=== PATIENT | male | born 1980 | race Caucasian/White ===

== ENCOUNTER 2022-02-07 15:18 | Emergency (ER) | payer MEDICAID, SELFPAY ==
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
--- NOTE | ~2022-02-07 | XR_ITS ---
EXAMINATION: XR FOOT, RIGHT CLINICAL INFORMATION: Metatarsal tenderness COMPARISON: None TECHNIQUE: AP, lateral, and oblique views of the right foot. FINDINGS: The bones and soft tissues are normal. No fracture. Alignment is anatomic. Joint spaces are maintained. XR/XR foot RT 2V IMPRESSION: Normal right foot.
[2022-02-07 15:33] VITALS: BP 126/88; BP 190/120; PULSE 100; PULSE 71; RESP 19; TEMP 37.1; O2SAT 100; BMI 26.6
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
[2022-02-07 17:50] VITALS: BP 122/86; PULSE 78; RESP 19; O2SAT 100
== END 2022-02-07 17:50 | disposition home or self-care (01) ==
PROVIDERS: Emergency Provider Emergency Medicine
DX: S13.4XXA Sprain of ligaments of cervical spine, initial encounter (principal); S90.31XA Contusion of right foot, initial encounter; G44.309 Post-traumatic headache, unspecified, not intractable; V43.52XA Car driver injured in collision with other type car in traffic accident, initial encounter; Y93.9 Activity, unspecified; Y92.410 Unspecified street and highway as the place of occurrence of the external cause; Y99.9 Unspecified external cause status
CPT/HCPCS: 70450; 72125; 73620; 99284

== ENCOUNTER 2023-02-02 17:46 | Emergency (ER) | payer OTHER, SELFPAY ==
--- NOTE | ~2023-02-02 | XR_ITS ---
EXAMINATION: XR KNEE, RIGHT CLINICAL INFORMATION: Pain. Previous injury COMPARISON: None available. TECHNIQUE: Four views of the right knee. FINDINGS: There is mild reduction the patellofemoral compartment. The medial and lateral compartment joint space is preserved. No joint effusion seen. There are no loose bodies. The soft tissues are normal. XR/XR knee RT 2V IMPRESSION: Mild degenerative changes patellofemoral compartment. No visible acute fracture or dislocation seen.
[2023-02-02 17:59] VITALS: BP 136/100; PULSE 102; RESP 20; TEMP 36.7; O2SAT 96; BMI 24.5
--- NOTE | 2023-02-02 18:01 | ED.GENADULT ---
HPI - General Adult General Chief complaint: Extremity Problem <EBONI Berg - Last Filed: 02/02/23 18:02> Stated complaint: right knee pain <EBONI Berg - Last Filed: 02/02/23 18:02> Time Seen by Provider: 02/02/23 19:58 <EBONI Berg - Last Filed: 02/02/23 18:02> Source: patient and RN notes reviewed <Damien Camarena - Last Filed: 02/02/23 20:19> Mode of arrival: ambulatory <Damien Camarena - Last Filed: 02/02/23 20:19> Limitations: no limitations <Damien Camarena - Last Filed: 02/02/23 20:19> History of Present Illness HPI narrative: 42-year-old male presenting for evaluation of right knee pain. Patient to that 3 years ago he tore his ACL, MCL, and meniscus requiring surgical repair. 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 He states that when the rounded the corner he sometimes right knee ?twisted. My foot planted but then my knee went the other way. ? He has been ambulating with a cane in the meantime but has pain mostly to the upper area of the knee and he indicates the medial side as well. His pain is 6/10 at worse with any kind of movement <Damien Camarena - Last Filed: 02/02/23 20:19> Related Data Home medications: Previous Rx's Medication Instructions Recorded naproxen 500 mg tablet (Naprosyn) 500 mg PO BID #20 tabs 02/07/22 ibuprofen 600 mg tablet 600 mg PO TID PRN pain #20 tabs 02/02/23 <EBONI Berg - Last Filed: 02/02/23 18:02> Allergies/adverse reactions: Allergies Allergy/AdvReac Type Severity Reaction Status Date / Time No Known Allergies Allergy Verified 02/07/22 16:09 <EBONI Berg - Last Filed: 02/02/23 18:02> Review of Systems Cardiovascular: Cardiovascular: Denies chest pain and Denies dyspnea <Damien Camarena - Last Filed: 02/02/23 20:19> Respiratory: Respiratory: Denies cough and Denies dyspnea <Damien Camarena - Last Filed: 02/02/23 20:19> Gastrointestinal: Gastrointestinal: Denies abdominal pain, Denies constipation and Denies vomiting <Damien Camarena - Last Filed: 02/02/23 20:19> Musculoskeletal: Comments: Right medial knee pain <Damien Camarena - Last Filed: 02/02/23 20:19> Neurologic: Denies focal weakness <Damien Camarena - Last Filed: 02/02/23 20:19> [facility] Social History Social History: Social History Advance Directives: No Advance Directives Information Provided: Yes <EBONI Berg - Last Filed: 02/02/23 18:02> Physical Exam ED Vital Signs: Vital Signs - 24 hr 02/02/23 17:59 Temperature 98.0 F Pulse Rate 102 H Respiratory Rate 20 Blood Pressure 136/100 H Pulse Oximetry 96 Oxygen Delivery Method Room Air BMI result Body Mass Index 24.5 <EBONI Berg - Last Filed: 02/02/23 18:02> Vital Signs - 24 hr 02/02/23 17:59 Temperature 98.0 F Pulse Rate 102 H Respiratory Rate 20 Blood Pressure 136/100 H Pulse Oximetry 96 Oxygen Delivery Method Room Air BMI result Body Mass Index 24.5 <Damien Camarena - Last Filed: 02/02/23 20:19> Const General: healthy appearing, comfortable, no acute distress, alert and awake <Damien Camarena - Last Filed: 02/02/23 20:19> Nutritional Appearance: well nourished <Damien Camarena - Last Filed: 02/02/23 20:19> Orientation/consciousness: patient oriented x3 <Damien Camarena - Last Filed: 02/02/23 20:19> Neck Neck: Yes full ROM <Damien Camarena - Last Filed: 02/02/23 20:19> Resp Effort & Inspection: normal respiratory effort, able to speak in complete sentences, no audible wheezes and not labored <Damien Camarena - Last Filed: 02/02/23 20:19> Auscultation: clear to auscultation bilaterally < Last Filed: 02/02/23 20:19> Cardio Rate: regular rate < Last Filed: 02/02/23 20:19> Rhythm: regular rhythm < Last Filed: 02/02/23 20:19> GI Inspection: No distended < Last Filed: 02/02/23 20:19> Palpation (GI): Soft to palpation, not firm, nontender, no guarding and not rigid < Last Filed: 02/02/23 20:19> Auscultation: normoactive bowel sounds < Last Filed: 02/02/23 20:19> Skin General skin exam: no rashes or lesions noted and elasticity normal < Last Filed: 02/02/23 20:19> Neuro General: patient oriented x3 < Last Filed: 02/02/23 20:19> Cranial nerves: Yes CN's II-XII intact bilaterally and Yes Bilaterally intact EOM present < Last Filed: 02/02/23 20:19> Cognition (Neuro): normal cognition < Last Filed: 02/02/23 20:19> Extrem Other: Patient has a is suprapatellar right knee joint effusion. He has tenderness mostly to the medial aspect of the right knee. There is no laxity with anterior drawer testing. He is able to flex and extend the knee without difficulty. <Damien O Last Filed: 02/02/23 20:19> Course Course Course Narrative: RME performed by Flor Holland PA-C. Patient is a 42 year old male presenting to the emergency department with right knee pain. Patient states that he had a previous surgery to the right knee for the ACL, MCL, and meniscus years ago and he recently twisted it at work and it is hurting it again. XRs ordered. <EBONI Berg - Last Filed: 02/02/23 18:02> Medical Decision Making Medical Decision Making MDM Narrative: 42-year-old male presenting for evaluation of right knee pain after twisting his knee. X-rays do not show any osseous abnormalities. Patient is able to flex and extend the knee indicating that his patellar tendon and quadriceps tendons are intact. He has no laxity with anterior drawer testing. He does have some tenderness over the medial aspect of the right knee with a suprapatellar joint effusion. Unable to rule out MCL injury at this time with the patient be referred to orthopedics for further evaluation and testing. <Damien Camarena - Last Filed: 02/02/23 20:19> Differential Diagnosis Knee sprain ACL injury MCL injury Contusion Patella tendon rupture <Damien Camarena - Last Filed: 02/02/23 20:19> Independent Interpretation I performed an independent interpretation of an: Plain X-Ray (Previous surgical sequelae noted, no acute osseous fractures) <Damien Camarena - Last Filed: 02/02/23 20:19> Radiology Impression Discussion of test interpretation with radiology: I have reviewed the radiologist's reading. <Damien Camarena - Last Filed: 02/02/23 20:19> Discharge Plan Discharge Clinical Impression: Knee MCL sprain <EBONI Berg - Last Filed: 02/02/23 18:02> Patient Disposition: Home, Self-Care <EBONI Berg - Last Filed: 02/02/23 18:02> Instructions: Knee Sprain (ED) <EBONI Berg - Last Filed: 02/02/23 18:02> Additional Instructions: Your x-ray did not show any fractures to your knee. Based on my physical exam, I do not believe you to your ACL. I am unsure if you sprain your MCL or tore the MCL Take ibuprofen for discomfort. He may follow-up with Orthopedics, Dr. Forbes Avoid heavy lifting or strenuous activity for the next 2 weeks <EBONI Berg - Last Filed: 02/02/23 18:02> Prescriptions: New ibuprofen 600 mg tablet 600 mg PO TID PRN (Reason: pain) Qty: 20 0RF No Action naproxen [Naprosyn] 500 mg tablet 500 mg PO BID Qty: 20 0RF <EBONI Berg - Last Filed: 02/02/23 18:02> Stand Alone Forms: Work/School Release <EBONI Berg - Last Filed: 02/02/23 18:02>
[2023-02-02] MEDS: Ibuprofen 600 MG TABLET PO (20:22)
== END 2023-02-02 20:23 | disposition home or self-care (01) ==
PROVIDERS: Emergency Provider Emergency Medicine Emergency Medical Services
DX: S83.411A Sprain of medial collateral ligament of right knee, initial encounter (principal); X50.1XXA Overexertion from prolonged static or awkward postures, initial encounter; Y93.89 Activity, other specified; Y92.59 Other trade areas as the place of occurrence of the external cause; Y99.0 Civilian activity done for income or pay
CPT/HCPCS: 73560; 99283

== ENCOUNTER 2023-02-11 10:36 | Emergency (ER) | payer OTHER, SELFPAY ==
[2023-02-11 10:40] VITALS: BP 157/107; PULSE 99; RESP 18; TEMP 36.8; O2SAT 99; BMI 25.0
--- NOTE | 2023-02-11 12:24 | ED.LOWEXIN ---
HPI - Extremity Injury (Lower) General Chief Complaint: Extremity Problem Stated Complaint: r knee pain Time Seen by Provider: 02/11/23 12:23 Source: patient Mode of arrival: ambulatory Limitations: no limitations History of Present Illness HPI Narrative: 42 yo male presents to the ER for evaluation of right knee pain for the last 1 week after an injury at work. He was seen here on 02/02 and had an x-ray that showed mild degenerative changes in the patellofemoral compartment. No visible acute fracture dislocation. He went to Ortho office today but was told his appointment is not until 02/18. He has been walking with a cane with ongoing pain the right knee. He feels it give out at times. He denies any swelling or redness. 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 MD complaint: knee injury Onset (ago): week(s) (1) Injury: Right: knee Type of Injury: inversion Place: work Severity: severe Relieving factors: nothing Exacerbating factors: weight bearing, movement and palpation Associated symptoms: able to partially bear weight Other symptoms: none Treatments prior to arrival: NSAIDS Related Data Previous Rx's Medication Instructions Recorded naproxen 500 mg tablet (Naprosyn) 500 mg PO BID #20 tabs 02/07/22 ibuprofen 600 mg tablet 600 mg PO TID PRN pain #20 tabs 02/02/23 ibuprofen 600 mg tablet 600 mg PO Q8H PRN pain #20 tabs 02/11/23 Allergies Allergy/AdvReac Type Severity Reaction Status Date / Time No Known Allergies Allergy Verified 02/07/22 16:09 Review of Systems Review of Systems: Yes all other systems are reviewed and are negative [facility] Social History Social History Advance Directives: No Advance Directives Information Provided: Yes Physical Exam Vital Signs: Vital Signs: Last Vital Signs Temp 98.3 F 02/11/23 10:40 Pulse 99 02/11/23 10:40 Resp 18 02/11/23 10:40 BP 157/107 H 02/11/23 10:40 Pulse Ox 99 02/11/23 10:40 O2 Del Method Room Air 02/11/23 10:40 BMI result Body Mass Index 25.0 Appearance: Alert. Oriented X3. No acute distress. HEENT: normal inspection CVS: Normal heart rate and rhythm. Pulses normal. Respiratory: No respiratory distress. Skin: Skin warm and dry. Normal skin color. Normal skin turgor. No rashes. Extremities: normal inspection bilateral LE. no right knee swelling. tenderness along the medial and lateral joint lines. Pain with passive flexion past 90 degrees. negative anterior drawer test. pain with varus and valgus stress. Neuro: Oriented X 3. No motor deficit. No sensory deficit. Antalgic gait Medical Decision Making Medical Decision Making [facility] Narrative: 42 yo with ongoing knee pain s/p injury 1 week ago. No new injury. He has ortho follow up. No evidence of septic knee, LE DVT. No need for repeat imaging. Differential Diagnosis Differential Diagnoses: The differential diagnosis associated with the presentation includes knee sprain, meniscus tear, ACL or MCL tear. Radiology Impression Discussion of test interpretation with radiology: I have reviewed the radiologist's reading. Radiologist Impression: XR/XR knee RT 2V IMPRESSION: Mild degenerative changes patellofemoral compartment. No visible acute fracture or dislocation seen. ? External Record Review External record reviewed: Outpatient record and Prior outpatient radiology Prescription Management I considered prescription management with: Pain Medication Critical Care Time Critical Care Time Critical Care Time: No Discharge Plan Discharge Clinical Impression: Knee pain Patient Disposition: Home, Self-Care Instructions: Knee Pain (ED) Additional Instructions: You x-ray on 02/02 showed mild degenerative changes in the patellofemoral compartment. No visible acute fracture or dislocation. No indication for repeat imaging today. Follow-up with your appointment for MRI next week. Recommend using crutches if the pain is too severe. Recommend an Neville wrap or knee brace. Recommend around the clock NSAIDs like Aleve, ibuprofen, Motrin along with around the clock Tylenol to help manage pain. Rest, ice, elevate the knee when possible. It is important to follow-up with orthopedics for further management. Prescriptions: New ibuprofen 600 mg tablet 600 mg PO Q8H PRN (Reason: pain) Qty: 20 0RF No Action naproxen [Naprosyn] 500 mg tablet 500 mg PO BID Qty: 20 0RF ibuprofen 600 mg tablet 600 mg PO TID PRN (Reason: pain) Qty: 20 0RF Referrals: [facility] [place] Group] (right knee injury, x ray 02/02 XR/XR knee RT 2V IMPRESSION: Mild degenerative changes patellofemoral compartment. No visible acute fracture or dislocation seen. ) Stand Alone Forms: Work/School Release
== END 2023-02-11 13:20 | disposition home or self-care (01) ==
PROVIDERS: Emergency Provider Student in an Organized Health Care Education/Training Program
DX: M25.561 Pain in right knee (principal); Z79.899 Other long term (current) drug therapy
CPT/HCPCS: 99282; 99283

== ENCOUNTER 2023-02-15 07:06 | Outpatient (REF) | payer OTHER, SELFPAY ==
--- NOTE | ~2023-02-15 | XR_ITS ---
EXAMINATION: 1. XR KNEE AP STANDING BILATERAL 2. PATELLAR SUNRISE VIEW OF THE RIGHT KNEE CLINICAL INFORMATION: Knee pain COMPARISON: Right knee x-rays 02/02/2023 TECHNIQUE: AP bilateral standing view of the knees was obtained in addition to a patellar sunrise view of the right knee. FINDINGS: Right knee: No fracture or dislocation. Evidence of prior ligament repair. The medial, lateral and patellofemoral joint spaces are well-maintained. Left knee: No fracture or dislocation. Medial and lateral joint spaces are well-maintained. XR/XR knee RT 1V IMPRESSION: Grossly unremarkable radiographs of both knees.
--- NOTE | ~2023-02-15 | XR_ITS ---
EXAMINATION: 1. XR KNEE AP STANDING BILATERAL 2. PATELLAR SUNRISE VIEW OF THE RIGHT KNEE CLINICAL INFORMATION: Knee pain COMPARISON: Right knee x-rays 02/02/2023 TECHNIQUE: AP bilateral standing view of the knees was obtained in addition to a patellar sunrise view of the right knee. FINDINGS: Right knee: No fracture or dislocation. Evidence of prior ligament repair. The medial, lateral and patellofemoral joint spaces are well-maintained. Left knee: No fracture or dislocation. Medial and lateral joint spaces are well-maintained. XR/XR knee standing BI IMPRESSION: Grossly unremarkable radiographs of both knees.
== END 2023-02-15 07:07 ==
LOC: HO.HOSX 07:06
PROVIDERS: Visit Provider Physician Assistant
DX: S83.8X1A Sprain of other specified parts of right knee, initial encounter (principal)
CPT/HCPCS: 73560; 73565

== ENCOUNTER 2023-02-23 17:04 | Inpatient (IN) | payer OTHER, MEDICAID, SELFPAY ==
--- NOTE | ~2023-02-23 | CT_ITS ---
EXAMINATION: CT ANGIOGRAM CHEST CT ANGIOGRAM ABDOMEN CT ANGIOGRAM PELVIS CLINICAL INFORMATION: Rule out aortic dissection. COMPARISON: None available. TECHNIQUE: Noncontrast bus company manager imaging of the chest, abdomen, and pelvis was obtained. Following the administration of 80 mL of Omnipaque 350 intravenously, multiple axial images were then obtained through the chest, abdomen, and pelvis. Sagittal, coronal, and MIP oblique sagittal reformatted images were obtained on the CT workstation, uploaded to PACS, and reviewed. This CT scan was performed using dose optimization techniques as appropriate to a performed exam including the following: *Automated exposure control *Adjustment of mA and/or kV according to patient size (this includes techniques or standardized protocols for targeted exams were dose is matched to indication/reason for exam; i.e. extremities or head) *Use of iterative reconstruction technique DLP: 797 mGy-cm. FINDINGS: VASCULAR: 1. Thoracic Aorta: The thoracic aorta demonstrates normal contour and caliber. There is a three-vessel, left-sided aortic arch. There is no significant stenosis of the great vessel origins. No evidence of thoracic aortic dissection. 2. Abdominal Aorta: The abdominal aorta is of normal contour and caliber without evidence of dissection. 3. Celiac Trunk: The celiac trunk and its branches opacify normally without evidence of dissection, obstruction, or flow-limiting stenosis. 4. Mesenteric Arteries: The superior and inferior mesenteric arteries are normal in caliber with no focal stenosis or dissection. 5. Renal Arteries: There are single renal arteries bilaterally. There is a single right-sided and single left-sided renal arteries. No evidence of stenosis or dissection. 6. Iliac Arteries: The iliac arteries are normal in course and caliber without evidence of focal stenosis or dissection. 7. Pulmonary Arteries: Although this exam was not tailored to assess the pulmonary arteries, there are no filling defects to suggest central pulmonary emboli. NONVASCULAR: CHEST: LUNG: No focal consolidation, nodules or masses. PLEURA: No pleural effusion or pneumothorax. MEDIASTINUM: Normal heart size. No pericardial effusion. No hilar or mediastinal or hilar lymphadenopathy. CHEST WALL/AXILLA: No axillary or internal mammary lymphadenopathy. ABDOMEN AND PELVIS: LIVER, GALLBLADDER, AND BILIARY TREE: The liver is normal in size, shape, and attenuation. No focal hepatic lesion or biliary ductal dilatation is present. The gallbladder is unremarkable with no evidence of radiopaque gallstones, gallbladder wall thickening, or obvious pericholecystic inflammatory changes. PANCREAS: Unremarkable. SPLEEN: Unremarkable. ADRENAL GLANDS: Unremarkable. KIDNEYS AND URETERS: The kidneys are normal in size, shape, and attenuation. No hydronephrosis, hydroureter, or calculi seen. No perinephric stranding. BLADDER: No bladder wall thickening. No bladder calculi. GASTROINTESTINAL TRACT: The stomach is adequately distended and grossly unremarkable. The small bowel is of normal caliber without regions of abnormal wall enhancement. The colon is normal in appearance without focal wall thickening or pericolonic inflammatory change. The appendix is prominent in caliber measuring 1.1 cm in diameter. A 1.2 cm appendicolith/fecalith is noted at the base of the appendix. Air is noted in the tip of the appendix. No definite periappendiceal fat stranding is appreciated. No definite appendiceal wall thickening. ABDOMINAL WALL: No significant hernia is appreciated. INTRA-ABDOMINAL AND RETROPERITONEAL SPACES: No intra-abdominal free fluid collections or gas. No mesenteric, retroperitoneal, or inguinal lymphadenopathy. PELVIC VISCERA: Unremarkable. OSSEOUS STRUCTURES: Unremarkable. CT/CT angio abdomen pelvis IMPRESSION: 1. No evidence of thoracic or aortic dissection. 2. No acute abnormality is noted in the chest. 3. The appendix is somewhat prominent in size containing appendicolith/fecalith at the base of the appendix. Although no definite periappendiceal inflammatory changes are seen possibility of very early acute appendicitis in the appropriate clinical settings cannot be completely excluded. Recommend clinical correlation.
--- NOTE | 2023-02-23 08:21 | ECG_ITS ---
Test Reason : ABD PAIN Blood Pressure : / mmHG Vent. Rate : 041 BPM Atrial Rate : 041 BPM P-R Int : 128 ms QRS Dur : 110 ms QT Int : 532 ms P-R-T Axes : 052 020 051 degrees QTc Int : 438 ms Marked sinus bradycardia Minimal voltage criteria for LVH, may be normal variant ( Sokolow-Cruz ) Abnormal ECG No previous ECGs available Referred By: Natalie Burnett Electronically Signed By:DANILO SELBY MD
[2023-02-23 17:30] VITALS: BP 132/98; BP 134/76; PULSE 60; PULSE 64; RESP 20; TEMP 36.6; O2SAT 100; BMI 25.2
[2023-02-23 17:39] LABS: Basophils Absolute Auto 0.1 X10*3/uL (0.0-0.2); Basophils Percent Auto 0.4 % (0-2); Hemoglobin 16.6 g/dl (14.0-18.0); Imm Gran Abs Auto 0.14 X10*3/uL (0.00-0.03); Imm Gran Pct Auto 0.7 % (0.0-0.4); Lymphocytes Absolute Auto 1.7 X10*3/uL (1.2-4.9); Mean Corpuscular HGB Conc 35.3 g/dl (31.0-36.0); Mean Corpuscular Hemoglobin 29.9 pg (27.0-33.0); Mean Corpuscular Volume 84.7 fL (80.0-98.0); Mean Platelet Volume 8.9 fL (9.4-12.4); Monocytes Absolute Auto 1.8 X10*3/uL (0.1-1.2); Monocytes Percent Auto 8.2 % (2-11); Neutrophils Absolute Auto 17.6 x10*3/uL (2.0-8.3); Neutrophils Percent Auto 82.7 % (45-73); Platelet Count 393 X10*3/uL (160-400); Red Blood Count 5.55 X10*6/uL (4.60-5.80); Red Cell Distribution Width 11.2 % (11.0-16.0); SCAN SMEAR FLAG 1; White Blood Count 21.3 X10*3/uL (4.8-10.8)
[2023-02-23] MEDS: ondansetron HCL 4 MG/2 ML VIAL IVPUSH (17:41)
[2023-02-23] MEDS: 0.9 % Sodium Chloride 1,000 ML 999 ML IVCONT ×2 (17:45→19:06)
[2023-02-23] MEDS: Morphine Sulfate 4 MG/ML CARTRIDGE IVPUSH (17:48)
--- NOTE | 2023-02-23 17:55 | PC.NURSE ---
Patient brought over to CT to obtain scans.
[2023-02-23 17:57] LABS: MANUAL DIFF FLAG SCAN
[2023-02-23 17:58] LABS: Alanine Aminotransferase 17 U/L (0-40); Albumin Level 4.4 g/dL (3.5-5.0); Alkaline Phosphatase 81 U/L (39-117); Anion Gap 22 (12-20); Aspartate Amino Transferase 25 U/L (5-37); Bilirubin Total 1.1 mg/dL (0.0-1.0); Blood Urea Nitrogen 7 mg/dL (9-16); Calcium 9.7 mg/dL (8.4-10.2); Carbon Dioxide 23 mmol/L (22-29); Chloride 101 mmol/L (96-108); Creatinine Clr Calc Pharmacy 108.1; Estimated Glomerular Filt Rate > 60; Glucose Random 142 mg/dL (60-115); Lipase 65 U/L (8-78); Magnesium 1.2 mg/dL (1.6-2.6); Potassium 3.4 mmol/L (3.3-5.1); SLIDE REVIEW VERIFIED; Sodium 143 mmol/L (135-145); Total Protein 7.4 g/dL (6.5-8.0)
--- NOTE | 2023-02-23 18:00 | PC.NURSE ---
Patient O2 sat dropping down to the 80's on room air when sleeping. When patient wakes up and takes deep breaths his sat comes up to high 90's-100%. at 1811 patient sat went down again to the 80's while he slept and patient placed on nonrebreather for a few minutes and his sat returned to 100%. Lung sounds are clear at this time. Patient is bradycardic on monitor. Nausea relieved with medication, patient no longer dry heaving.
[2023-02-23 18:10] LABS: COVID-19 Test Negative (Negative); IDNOW Serial# 08D9AD1C
--- NOTE | 2023-02-23 18:10 | PC.NURSE ---
second IV placed on patient and blood cultures and lactic acid drawn on patient.
[2023-02-23] MEDS: iohexoL 350 MG/ML 100 ML INFUS..BTL IV (18:15)
--- NOTE | 2023-02-23 18:15 | PC.NURSE ---
Patient placed on 2L O2 via NC due to sats dropping while patient is asleep.
[2023-02-23 18:21] VITALS: RESP 15
[2023-02-23] MEDS: HYDROmorphone HCl 1 MG/ML SYRINGE IVPUSH (18:21)
[2023-02-23 18:24] VITALS: BP 174/92; PULSE 44; RESP 14; O2SAT 100
--- NOTE | 2023-02-23 18:38 | MHC.EDTECH ---
EKG perofrmed 18:56
[2023-02-23] MEDS: Magnesium Sulfate/H2O 2 GM/50 ML PIGGYBACK IV (18:41)
[2023-02-23 18:42] LABS: Glucose, Whole Blood 100 mg/dL (60-115)
[2023-02-23 18:43] LABS: Lactic Acid 3.4 mmol/L (0.5-2.0)
--- NOTE | 2023-02-23 18:54 | PC.NURSE ---
Patient pressure noted to be in the 170's SBP while his pulse noted to be between 40-45. Patient also noted to be prespiring, sweat beads noted to his head and his arms were moist as well. Provider notified about findings and no new orders at this time. POC sugar was noted to be 100 and will get another poc 15 minutes after this result. Patient is sleepy but wakes to verbal stimulation.
[2023-02-23 19:06] LABS: Glucose, Whole Blood 101 mg/dL (60-115)
[2023-02-23] MEDS: Piperacillin Sodium/Tazobactam 3.375 GM in 0.9 % Sodium Chloride 50 ML IV (19:06)
[2023-02-23 19:17] LABS: Appearance Urine Clear; Color Urine Yellow; Glucose Urine UA Negative (Negative); Leukocyte Esterase Urine Negative (Negative); Nitrite Urine Negative (Negative); PH >= 9.0 (5.0-9.0); Specific Gravity - Urine >= 1.030 (1.005-1.025); Urine Blood Negative (Negative); Urine Ketones Negative (Negative); Urine Protein Negative (Neg-Trace)
--- NOTE | 2023-02-23 19:33 | ED_ITS ---
HPI - Abdominal Pain General Chief Complaint: Abdominal Pain Stated Complaint: ABD PAIN W/ NAUSEA/VOMITING SINCE NOON PER EMS Time Seen by Provider: 02/23/23 17:31 Source: patient and EMS Mode of arrival: EMS Limitations: no limitations History of Present Illness HPI narrative: Patient comes to the emergency room via ambulance complaining of severe abdominal pain starting at 13:00. Patient states it was sudden, has been vomiting and being very nauseous since then. Unable to keep fluids. Patient states that yesterday he took some mushrooms to get high. Denies diarrhea. Also, states that he does take a large amount of ibuprofen 600 mg every 8 hours for knee pain. Patient has been taking it throughout this week. Patient denies history of gastritis or ulcers. Related Data Previous Rx's Medication Instructions Recorded naproxen 500 mg tablet (Naprosyn) 500 mg PO BID #20 tabs 02/07/22 ibuprofen 600 mg tablet 600 mg PO TID PRN pain #20 tabs 02/02/23 ibuprofen 600 mg tablet 600 mg PO Q8H PRN pain #20 tabs 02/11/23 Allergies Allergy/AdvReac Type Severity Reaction Status Date / Time No Known Allergies Allergy Verified 02/15/23 10:40 Review of Systems Review of Systems Constitutional : No Weight loss, No Fever, No Chills, No Night Sweats, No Fatigue, No Malaise ENT/Mouth : No Hearing loss, No Ear Pain, No Nasal Congestion, No Sinus Pain, No Hoarseness, No sore throat, No Rhinorrhea, No Swallowing Difficulty Eyes: No Eye Pain, No Swelling, No Redness, No Foreign Body, No Discharge, No Vision Changes Cardiovascular : No Chest Pain, No SOB, No Dyspnea on Exertion, No Orthopnea, No Edema, No Palpitations Respiratory : No Cough, No Sputum, No Wheezing, No Smoke Exposure, No Dyspnea Gastrointestinal : Bleeding of nausea and vomiting, no diarrhea constipation, complaining of severe epigastric and periumbilical pain radiating towards the back and mid chest Genitourinary : no irregular bleeding, No Dysuria, No Urinary Frequency, No Hematuria, No Urinary Incontinence, No Urgency, No Flank Pain, No Urinary Flow Changes, No Hesitancy Musculoskeletal : No joint pain, No Myalgias, No Joint Swelling Skin : No Skin Lesions, No rash Neuro : No Weakness, No Numbness, No Paresthesias, No Loss of Consciousness, No Dizziness, No Headache Psych : No Anxiety/Panic, No Depression, No SI/HI/AH/VH, No Social Issues, Heme/Lymph: No Bruising, No Bleeding,No Lymphadenopathy Endocrine : No Polyuria, No Polydipsia, No Temperature Intolerance [facility] Past Medical History Medical History (Updated 02/24/23 @ 01:35 by Natalie Burnett MD) Substance abuse Social History Social History (Updated 02/15/23 @ 10:40 by Ivon Pearl) Alcohol intake: current Alcohol intake frequency: 0-2 drinks per day Patient Tobacco Use Status: Never used Tobacco Smoked in Last 30 Days: Yes Use of substances other than those prescribed or required for medical reasons: Yes Substance Use Type: Hallucinogens and Marijuana Advance Directives: No Advance Directives Information Provided: No Current occupational status: employed 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 Oriented X3. Very uncomfortable Eyes: Pupils equal, round and reactive to light. ENT: Pharynx normal. Neck: Normal inspection. Neck supple. No lymph nodes noted. No crepitus CVS: Normal heart rate and rhythm. Pulses normal. Normal S1 and S2 Respiratory: No respiratory distress. Breath sounds normal. No Wheezing. No rales Abdomen: Soft, pain to palpation in epigastric area and periumbilical area, no rebound no guarding, no pain at the McBurney's point, negative Henriquez sign, acute abdomen a suspected Skin: Skin warm and dry. Normal skin color. Normal skin turgor. Extremities: No lower extremity edema. No Lacerations. No Rash Neuro: Oriented X 3. No motor deficit. No sensory deficit. Moving all extremities. No slurred speech. CN 2 through 12 grossly intact Psych: Very anxious , cooperative, Medical Decision Making Medical Decision Making [facility] Narrative: Patient's white blood cell count is 21.3, lactic acid is 3.4. -I discussed the patient with Dr. Langford from surgery, requesting to have labs redrawn at 01:00. We will reassess the patient. If patient's labs improve he may be discharged. -patient responds well to ketorolac for pain control. However, he still having abdominal pain. -white blood cell count improved to 19.9. Lactic acid improved to 1.8 -I discussed again the patient with Dr. Langford, patient is still having intermittent abdominal pain, responds well to Toradol. On physical exam, there is no rebound, no guarding. Patient still having significant abdominal pain on palpation in the periumbilical area. Differential Diagnosis Differential Diagnoses: The differential diagnosis associated with the presentation includes (Colitis, appendicitis, nephrolithiasis, perforation) Admission/Observation Consideration of admission/observation: Escalation of care including admission/observation considered Consult Healthcare Provider Management of the patient was discussed with: Food Preparation Kitchen Aide Lab Data [facility] Lab Attestation statement: I reviewed the patient's lab results. 02/23/23 17:26 02/23/23 17:26 Labs: Lab Results 02/23/23 02/23/23 02/23/23 Range/Units 17:26 17:26 17:29 WBC 21.3 H (4.8-10.8) X10*3/uL RBC 5.55 (4.60-5.80) X10*6/uL Hgb 16.6 (14.0-18.0) g/dl Hct 47.0 (42.0-52.0) % MCV 84.7 (80.0-98.0) fL MCH 29.9 (27.0-33.0) pg MCHC 35.3 (31.0-36.0) g/dl RDW 11.2 (11.0-16.0) % Plt Count 393 (160-400) X10*3/uL MPV 8.9 L (9.4-12.4) fL Immature Gran % (Auto) 0.7 H (0.0-0.4) % Neut % (Auto) 82.7 H (45-73) % Lymph % (Auto) 8.0 L (20-40) % [place] % (Auto) 8.2 (2-11) % Eos % (Auto) 0.0 (0-4) % Baso % (Auto) 0.4 (0-2) % Lymph # (Auto) 1.7 (1.2-4.9) X10*3/uL [place] # (Auto) 1.8 H (0.1-1.2) X10*3/uL Eos # (Auto) 0.0 (0.0-0.4) X10*3/uL Baso # (Auto) 0.1 (0.0-0.2) X10*3/uL Abs Immat Gran (auto) 0.14 H (0.00-0.03) X10*3/uL Absolute Neuts (auto) 17.6 H (2.0-8.3) x10*3/uL Absolute Nucleated RBC 0.000 (0.0-0.012) X10*3/uL Nucleated RBC % (auto) 0.0 (0.0-0.2) /100WBC Smear Tech's Comments VERIFIED Sodium 143 (135-145) mmol/L Potassium 3.4 (3.3-5.1) mmol/L Chloride 101 (96-108) mmol/L Carbon Dioxide 23 (22-29) mmol/L Anion Gap 22 H (12-20) BUN 7 L (9-16) mg/dL Creatinine 0.84 (0.5-1.4) mg/dL Estim Creat Clear Calc 108.1 Estimated GFR > 60 POC Glucose (60-115) mg/dL Random Glucose 142 H (60-115) mg/dL Lactic Acid (0.5-2.0) mmol/L Lactic Acid F/U @ 2Hr (0.5-2.0) mmol/L Calcium 9.7 (8.4-10.2) mg/dL Magnesium 1.2 L* (1.6-2.6) mg/dL Total Bilirubin 1.1 H (0.0-1.0) mg/dL AST 25 (5-37) U/L ALT 17 (0-40) U/L Alkaline Phosphatase 81 (39-117) U/L Total Protein 7.4 (6.5-8.0) g/dL Albumin 4.4 (3.5-5.0) g/dL Lipase 65 (8-78) U/L Urine Color Urine Appearance Urine pH (5.0-9.0) Ur Specific [place] (1.005-1.025) Urine Protein (Neg-Trace) mg/dL Urine Glucose (UA) (Negative) mg/dL Urine Ketones (Negative) mg/dL Urine Blood (Negative) Urine Nitrite (Negative) Ur Leukocyte Esterase (Negative) Urine Opiates Screen (Not Detect) Urine Fentanyl Screen (Not Detect) Ur Barbiturates Screen (Not Detect) Ur Phencyclidine Scrn (Not Detect) Ur Amphetamines Screen (Not Detect) U Benzodiazepines Scrn (Not Detect) Urine Cocaine Screen (Not Detect) U Marijuana (THC) Screen (Not Detect) COVID-19 (GUNNAR) Negative (Negative) COVID-19 Clin Com See Note 02/23/23 02/23/23 02/23/23 Range/Units 18:09 18:37 18:59 WBC (4.8-10.8) X10*3/uL RBC (4.60-5.80) X10*6/uL Hgb (14.0-18.0) g/dl Hct (42.0-52.0) % MCV (80.0-98.0) fL MCH (27.0-33.0) pg MCHC (31.0-36.0) g/dl RDW (11.0-16.0) % Plt Count (160-400) X10*3/uL MPV (9.4-12.4) fL Immature Gran % (Auto) (0.0-0.4) % Neut % (Auto) (45-73) % Lymph % (Auto) (20-40) % [place] % (Auto) (2-11) % Eos % (Auto) (0-4) % Baso % (Auto) (0-2) % Lymph # (Auto) (1.2-4.9) X10*3/uL [place] # (Auto) (0.1-1.2) X10*3/uL Eos # (Auto) (0.0-0.4) X10*3/uL Baso # (Auto) (0.0-0.2) X10*3/uL Abs Immat Gran (auto) (0.00-0.03) X10*3/uL Absolute Neuts (auto) (2.0-8.3) x10*3/uL Absolute Nucleated RBC (0.0-0.012) X10*3/uL Nucleated RBC % (auto) (0.0-0.2) /100WBC Smear Tech's Comments Sodium (135-145) mmol/L Potassium (3.3-5.1) mmol/L Chloride (96-108) mmol/L Carbon Dioxide (22-29) mmol/L Anion Gap (12-20) BUN (9-16) mg/dL Creatinine (0.5-1.4) mg/dL Estim Creat Clear Calc Estimated GFR POC Glucose 100 (60-115) mg/dL Random Glucose (60-115) mg/dL Lactic Acid 3.4 H* (0.5-2.0) mmol/L Lactic Acid F/U @ 2Hr (0.5-2.0) mmol/L Calcium (8.4-10.2) mg/dL Magnesium (1.6-2.6) mg/dL Total Bilirubin (0.0-1.0) mg/dL AST (5-37) U/L ALT (0-40) U/L Alkaline Phosphatase (39-117) U/L Total Protein (6.5-8.0) g/dL Albumin (3.5-5.0) g/dL Lipase (8-78) U/L Urine Color Yellow Urine Appearance Clear Urine pH >= 9.0 (5.0-9.0) Ur Specific [place] >= 1.030 H (1.005-1.025) Urine Protein Negative (Neg-Trace) mg/dL Urine Glucose (UA) Negative (Negative) mg/dL Urine Ketones Negative (Negative) mg/dL Urine Blood Negative (Negative) Urine Nitrite Negative (Negative) Ur Leukocyte Esterase Negative (Negative) Urine Opiates Screen (Not Detect) Urine Fentanyl Screen (Not Detect) Ur Barbiturates Screen (Not Detect) Ur Phencyclidine Scrn (Not Detect) Ur Amphetamines Screen (Not Detect) U Benzodiazepines Scrn (Not Detect) Urine Cocaine Screen (Not Detect) U Marijuana (THC) Screen (Not Detect) COVID-19 (GUNNAR) (Negative) COVID-19 Clin Com 02/23/23 02/23/23 02/23/23 Range/Units 18:59 19:02 20:28 WBC (4.8-10.8) X10*3/uL RBC (4.60-5.80) X10*6/uL Hgb (14.0-18.0) g/dl Hct (42.0-52.0) % MCV (80.0-98.0) fL MCH (27.0-33.0) pg MCHC (31.0-36.0) g/dl RDW (11.0-16.0) % Plt Count (160-400) X10*3/uL MPV (9.4-12.4) fL Immature Gran % (Auto) (0.0-0.4) % Neut % (Auto) (45-73) % Lymph % (Auto) (20-40) % [place] % (Auto) (2-11) % Eos % (Auto) (0-4) % Baso % (Auto) (0-2) % Lymph # (Auto) (1.2-4.9) X10*3/uL [place] # (Auto) (0.1-1.2) X10*3/uL Eos # (Auto) (0.0-0.4) X10*3/uL Baso # (Auto) (0.0-0.2) X10*3/uL Abs Immat Gran (auto) (0.00-0.03) X10*3/uL Absolute Neuts (auto) (2.0-8.3) x10*3/uL Absolute Nucleated RBC (0.0-0.012) X10*3/uL Nucleated RBC % (auto) (0.0-0.2) /100WBC Smear Tech's Comments Sodium (135-145) mmol/L Potassium (3.3-5.1) mmol/L Chloride (96-108) mmol/L Carbon Dioxide (22-29) mmol/L Anion Gap (12-20) BUN (9-16) mg/dL Creatinine (0.5-1.4) mg/dL Estim Creat Clear Calc Estimated GFR POC Glucose 101 (60-115) mg/dL Random Glucose (60-115) mg/dL Lactic Acid (0.5-2.0) mmol/L Lactic Acid F/U @ 2Hr 1.8 (0.5-2.0) mmol/L Calcium (8.4-10.2) mg/dL Magnesium (1.6-2.6) mg/dL Total Bilirubin (0.0-1.0) mg/dL AST (5-37) U/L ALT (0-40) U/L Alkaline Phosphatase (39-117) U/L Total Protein (6.5-8.0) g/dL Albumin (3.5-5.0) g/dL Lipase (8-78) U/L Urine Color Urine Appearance Urine pH (5.0-9.0) Ur Specific [place] (1.005-1.025) Urine Protein (Neg-Trace) mg/dL Urine Glucose (UA) (Negative) mg/dL Urine Ketones (Negative) mg/dL Urine Blood (Negative) Urine Nitrite (Negative) Ur Leukocyte Esterase (Negative) Urine Opiates Screen POSITIVE H (Not Detect) Urine Fentanyl Screen Not Detected (Not Detect) Ur Barbiturates Screen Not Detected (Not Detect) Ur Phencyclidine Scrn Not Detected (Not Detect) Ur Amphetamines Screen POSITIVE H (Not Detect) U Benzodiazepines Scrn Not Detected (Not Detect) Urine Cocaine Screen Not Detected (Not Detect) U Marijuana (THC) Screen POSITIVE H (Not Detect) COVID-19 (GUNNAR) (Negative) COVID-19 Clin Com 02/23/23 02/24/23 Range/Units 21:17 01:00 WBC 19.9 H (4.8-10.8) X10*3/uL RBC 4.87 (4.60-5.80) X10*6/uL Hgb 14.5 (14.0-18.0) g/dl Hct 42.5 (42.0-52.0) % MCV 87.3 (80.0-98.0) fL MCH 29.8 (27.0-33.0) pg MCHC 34.1 (31.0-36.0) g/dl RDW 11.4 (11.0-16.0) % Plt Count 291 D (160-400) X10*3/uL MPV 8.6 L (9.4-12.4) fL Immature Gran % (Auto) 0.5 H (0.0-0.4) % Neut % (Auto) 81.4 H (45-73) % Lymph % (Auto) 8.6 L (20-40) % [place] % (Auto) 9.1 (2-11) % Eos % (Auto) 0.1 (0-4) % Baso % (Auto) 0.3 (0-2) % Lymph # (Auto) 1.7 (1.2-4.9) X10*3/uL [place] # (Auto) 1.8 H (0.1-1.2) X10*3/uL Eos # (Auto) 0.0 (0.0-0.4) X10*3/uL Baso # (Auto) 0.1 (0.0-0.2) X10*3/uL Abs Immat Gran (auto) 0.09 H (0.00-0.03) X10*3/uL Absolute Neuts (auto) 16.2 H (2.0-8.3) x10*3/uL Absolute Nucleated RBC 0.000 (0.0-0.012) X10*3/uL Nucleated RBC % (auto) 0.0 (0.0-0.2) /100WBC Smear Tech's Comments Sodium (135-145) mmol/L Potassium (3.3-5.1) mmol/L Chloride (96-108) mmol/L Carbon Dioxide (22-29) mmol/L Anion Gap (12-20) BUN (9-16) mg/dL Creatinine (0.5-1.4) mg/dL Estim Creat Clear Calc Estimated GFR POC Glucose (60-115) mg/dL Random Glucose (60-115) mg/dL Lactic Acid (0.5-2.0) mmol/L Lactic Acid F/U @ 2Hr (0.5-2.0) mmol/L Calcium (8.4-10.2) mg/dL Magnesium 1.9 (1.6-2.6) mg/dL Total Bilirubin (0.0-1.0) mg/dL AST (5-37) U/L ALT (0-40) U/L Alkaline Phosphatase (39-117) U/L Total Protein (6.5-8.0) g/dL Albumin (3.5-5.0) g/dL Lipase (8-78) U/L Urine Color Urine Appearance Urine pH (5.0-9.0) Ur Specific [place] (1.005-1.025) Urine Protein (Neg-Trace) mg/dL Urine Glucose (UA) (Negative) mg/dL Urine Ketones (Negative) mg/dL Urine Blood (Negative) Urine Nitrite (Negative) Ur Leukocyte Esterase (Negative) Urine Opiates Screen (Not Detect) Urine Fentanyl Screen (Not Detect) Ur Barbiturates Screen (Not Detect) Ur Phencyclidine Scrn (Not Detect) Ur Amphetamines Screen (Not Detect) U Benzodiazepines Scrn (Not Detect) Urine Cocaine Screen (Not Detect) U Marijuana (THC) Screen (Not Detect) COVID-19 (GUNNAR) (Negative) COVID-19 Clin Com Radiology Impression Discussion of test interpretation with radiology: I have reviewed the radiologist's reading. Radiologist Impression: VASCULAR: 1.? Thoracic Aorta: The thoracic aorta demonstrates normal contour and caliber. There is a three-vessel, left-sided aortic arch. There is no significant stenosis of the great vessel origins. No evidence of thoracic aortic dissection. 2.? Abdominal Aorta: The abdominal aorta is of normal contour and caliber without evidence of dissection. 3.? Celiac Trunk: The celiac trunk and its branches opacify normally without evidence of dissection, obstruction, or flow-limiting stenosis. 4.? Mesenteric Arteries: The superior and inferior mesenteric arteries are normal in caliber with no focal stenosis or dissection. 5.? Renal Arteries: There are single renal arteries bilaterally. There is a single right-sided and single left-sided renal arteries. No evidence of stenosis or dissection. 6.? Iliac Arteries: The iliac arteries are normal in course and caliber without evidence of focal stenosis or dissection. 7.? Pulmonary Arteries: Although this exam was not tailored to assess the pulmonary arteries, there are no filling defects to suggest central pulmonary emboli. NONVASCULAR: CHEST: LUNG: No focal consolidation, nodules or masses. PLEURA: No pleural effusion or pneumothorax. MEDIASTINUM: Normal heart size.? No pericardial effusion.? No hilar or mediastinal or hilar lymphadenopathy. CHEST WALL/AXILLA: No axillary or internal mammary lymphadenopathy. ABDOMEN AND PELVIS: LIVER, GALLBLADDER, AND BILIARY TREE: The liver is normal in size, shape, and attenuation. No focal hepatic lesion or biliary ductal dilatation is present. The gallbladder is unremarkable with no evidence of radiopaque gallstones, gallbladder wall thickening, or obvious pericholecystic inflammatory changes.? PANCREAS: Unremarkable.? SPLEEN: Unremarkable.? ADRENAL GLANDS: Unremarkable.? KIDNEYS AND URETERS: The kidneys are normal in size, shape, and attenuation. No hydronephrosis, hydroureter, or calculi seen. No perinephric stranding. ? BLADDER: No bladder wall thickening. No bladder calculi.? GASTROINTESTINAL TRACT: The stomach is adequately distended and grossly unremarkable. The small bowel is of normal caliber without regions of abnormal wall enhancement. The colon is normal in appearance without focal wall thickening or pericolonic inflammatory change. The appendix is prominent in caliber measuring 1.1 cm in diameter. A 1.2 cm appendicolith/fecalith is noted at the base of the appendix. Air is noted in the tip of the appendix. No definite periappendiceal fat stranding is appreciated. No definite appendiceal wall thickening. ABDOMINAL WALL: No significant hernia is appreciated.? INTRA-ABDOMINAL AND RETROPERITONEAL SPACES: No intra-abdominal free fluid collections or gas. No mesenteric, retroperitoneal, or inguinal lymphadenopathy. PELVIC VISCERA: Unremarkable. OSSEOUS STRUCTURES: Unremarkable.? CT/CT angio chest aorta IMPRESSION: 1. No evidence of thoracic or aortic dissection. ? 2. No acute abnormality is noted in the chest. ? 3. The appendix is somewhat prominent in size containing appendicolith/fecalith at the base of the appendix. Although no definite periappendiceal inflammatory changes are seen possibility of very early acute appendicitis in the appropriate clinical settings cannot be completely excluded. Recommend clinical correlation. ? Medications Administered Discontinued Medications Generic Name Dose Route Start Last Admin Trade Name Freq PRN Reason Stop Dose Admin Hydromorphone HCl 1 mg 02/23/23 17:59 02/23/23 18:21 Hydromorphone Hcl 1 Mg/Ml Syringe IVPUSH 02/23/23 18:00 1 mg ONCE ONE Administration Protocol Sodium Chloride 1,000 mls @ 999 mls/hr 02/23/23 17:31 02/23/23 19:00 Ns IVCONT 02/23/23 18:31 Infused .Q1H1M ONE Infusion Magnesium Sulfate 2 gm in 50 mls @ 25 mls/hr 02/23/23 18:29 02/23/23 20:41 Magnesium Sulfate/H2o IV 02/23/23 20:28 Infused ONCE ONE Infusion Piperacillin Sod/Tazobactam 50 mls @ 100 mls/hr 02/23/23 18:42 02/23/23 20:00 Sod 3.375 gm/ Sodium Chloride IV 02/23/23 19:11 Infused ONCE ONE Infusion Sodium Chloride 1,000 mls @ 999 mls/hr 02/23/23 18:42 02/23/23 20:10 Ns IVCONT 02/23/23 19:42 Infused .Q1H1M ONE Infusion Iohexol 100 ml 02/23/23 18:13 02/23/23 18:15 Iohexol 350 Mg/Ml 100 Ml Infus..Btl IV 02/23/23 18:14 80 ml ONCE ONE Administration Ketorolac Tromethamine 30 mg 02/23/23 20:42 02/23/23 20:46 Ketorolac Tromethamine 30 Mg/Ml Vial IVPUSH 02/23/23 20:43 30 mg ONCE ONE Administration Ketorolac Tromethamine 15 mg 02/24/23 01:13 02/24/23 01:26 Ketorolac Tromethamine 15 Mg/Ml Vial IVPUSH 02/24/23 01:14 15 mg ONCE ONE Administration Lorazepam 2 mg 02/23/23 21:06 02/23/23 21:19 Lorazepam 2 Mg/Ml Vial IVPUSH 02/23/23 21:07 2 mg ONCE ONE Administration Morphine Sulfate 4 mg 02/23/23 17:39 02/23/23 17:48 Morphine Sulfate 4 Mg/Ml Cartridge IVPUSH 02/23/23 17:40 4 mg ONCE ONE Administration Protocol Nicotine Polacrilex 2 mg 02/23/23 21:11 02/23/23 21:19 Nicotine Polacrilex 2 Mg Gum BUCCAL 02/23/23 21:12 2 mg ONCE ONE Administration Ondansetron HCl 4 mg 02/23/23 17:31 02/23/23 17:41 Ondansetron Hcl 4 Mg/2 Ml Vial IVPUSH 02/23/23 17:32 4 mg ONCE ONE Administration Discharge Plan Discharge Clinical Impression: Appendicitis Patient Disposition: Admitted As Inpatient Prescriptions: No Action naproxen [Naprosyn] 500 mg tablet 500 mg PO BID Qty: 20 0RF ibuprofen 600 mg tablet 600 mg PO TID PRN (Reason: pain) Qty: 20 0RF ibuprofen 600 mg tablet 600 mg PO Q8H PRN (Reason: pain) Qty: 20 0RF
[2023-02-23 20:13] LABS: Reflex Lactate? Lactic Acid Added
[2023-02-23 20:40] VITALS: BP 155/94; PULSE 48; RESP 21; O2SAT 99
[2023-02-23] MEDS: Ketorolac Tromethamine 30 MG/ML VIAL IVPUSH (20:46)
[2023-02-23 20:53] LABS: ~Lactic Acid-LAB USE ONLY 1.8 mmol/L (0.5-2.0)
[2023-02-23] MEDS: LORazepam 2 MG/ML VIAL IVPUSH (21:19)
[2023-02-23] MEDS: Nicotine Polacrilex 2 MG GUM BUCCAL (21:19)
[2023-02-23 21:27] LABS: Amphetamine Screen Urine POSITIVE (Not Detect); Barbiturates, Urine Not Detected (Not Detect); Benzodiazepines Screen Urine Not Detected (Not Detect); Cannabinoid Screen Urine POSITIVE (Not Detect); Cocaine Screen Urine Not Detected (Not Detect); Fentanyl, urine Not Detected (Not Detect); Opiate Screen Urine POSITIVE (Not Detect); Phencyclidine Screen Urine Not Detected (Not Detect)
[2023-02-23 21:38] LABS: Magnesium 1.9 mg/dL (1.6-2.6)
--- NOTE | 2023-02-23 22:29 | PC.NURSE ---
Patient is alert and oriented x3. Patient's HR 50-69 NSR, BP 120-140/70-84, O2 Sat 97-98% RA. Patient's noted to have severe pain in his abdomen with movement, attempts to get up to use a urinal-per patient unable to use it in a sitting position. [place] catheter applied to promote comfort and proper bladder emptying and medicated with Toradol 30 mg IV push. Patient reported feeling anxious d/t bright light and loud noises in ED. Patient also reports he is a smoker and craving nicotine. Dr. Burnett informed, patient medicated with Lorazepam 2 mg IV push and Nicorette chewing gum with good effect. Patient is calm, resting comfortably with his eyes closed. Patient's mother at bedside, call kim within patient's reach.
[2023-02-23 23:59] VITALS: BP 140/88; PULSE 59; RESP 17; O2SAT 100
[2023-02-24] VITALS (7 sets, daily range): BP systolic 122–153; BP diastolic 69–90; PULSE 61–76; RESP 16–20; TEMP 36.5–37.3; O2SAT 98–100
[2023-02-24 01:04] LABS: Basophils Absolute Auto 0.1 X10*3/uL (0.0-0.2); Basophils Percent Auto 0.3 % (0-2); Eosinophils Percent Auto 0.1 % (0-4); Hematocrit 42.5 % (42.0-52.0); Hemoglobin 14.5 g/dl (14.0-18.0); Imm Gran Abs Auto 0.09 X10*3/uL (0.00-0.03); Imm Gran Pct Auto 0.5 % (0.0-0.4); Lymphocytes Absolute Auto 1.7 X10*3/uL (1.2-4.9); Lymphocytes Percent Auto 8.6 % (20-40); MANUAL DIFF FLAG SCAN; Mean Corpuscular HGB Conc 34.1 g/dl (31.0-36.0); Mean Corpuscular Hemoglobin 29.8 pg (27.0-33.0); Mean Corpuscular Volume 87.3 fL (80.0-98.0); Mean Platelet Volume 8.6 fL (9.4-12.4); Monocytes Absolute Auto 1.8 X10*3/uL (0.1-1.2); Monocytes Percent Auto 9.1 % (2-11); Neutrophils Absolute Auto 16.2 x10*3/uL (2.0-8.3); Neutrophils Percent Auto 81.4 % (45-73); Platelet Count 291 X10*3/uL (160-400); Red Blood Count 4.87 X10*6/uL (4.60-5.80); Red Cell Distribution Width 11.4 % (11.0-16.0); SCAN SMEAR FLAG 1; White Blood Count 19.9 X10*3/uL (4.8-10.8)
[2023-02-24] MEDS: Ketorolac Tromethamine 15 MG/ML VIAL IVPUSH (01:26)
[2023-02-24] MEDS: Dextrose 5 % and 0.45 % NaCl 1,000 ML 100 ML IVCONT ×2 (02:53→11:04)
--- NOTE | 2023-02-24 03:14 | MHC.EDTECH ---
this pct assumed care of pt at 0300 ,pt vitals sign taken ,pt asked for some ice chips ,lidia hamilton said it was steve .
--- NOTE | 2023-02-24 03:53 | PC.NURSE ---
Patient is resting comfortably. VSS. Call kim within patient's reach.
[2023-02-24] MEDS: Ketorolac Tromethamine 30 MG/ML VIAL IVPUSH ×2 (05:05→18:08)
--- NOTE | 2023-02-24 05:30 | PC.NURSE ---
Patient woke up screaming in pain. Patient states that pain in his suprapubic area is unbearable and he is not able to urinate.This RN assessed [place] catheter bag and noted 650 ML of urine in the catheter bag. This RN scanned patient's bladder, 630 mL of urine present in patient's bladder. Dr. Langford notified, new order received to insert 16 Fr F/C. This RN attempted to insert F/C with no success-no urine flow with F/C insertion. Patient assisted to stand up, patient was able to void 180 mL of urine into the urinal in standing position. Patient was medicated with Tylenol with Codeine PO, Toradol IV push,and Dilaudid. Vital signs stable, patient reports pain in his abdomen and suprapubic are is 3/10 at present-at tolerable level. Call kim within patient's reach.
[2023-02-24] MEDS: HYDROmorphone HCl 1 MG/ML SYRINGE IVPUSH (05:38)
--- NOTE | 2023-02-24 06:46 | P.HPGS_ITS ---
History of Present Illness History of Present Illness Date of Service: 02/24/23 Chief complaint: Abdominal Pain Narrative: Allan Gayle is a 42 year old male who presents with approximately 1 day's history of initially epigastric pain which is relocated to his right lower quadrant. Pain has progressed in nature. He denies any diarrhea or loose stools. He has no other GI issues or complaints. Has had some nausea but no vomiting. He has never had such symptoms before Chart and CT scan were reviewed and patient evaluated. Incidental note is that patient does occasionally use marijuana and mushrooms /hallucinogenics socially. [facility] Past Medical History Medical History (Updated 02/24/23 @ 01:35 by Natalie Burnett MD) Substance abuse Social History Social History (Updated 02/15/23 @ 10:40 by Ivon Pearl) Alcohol intake: current Alcohol intake frequency: 0-2 drinks per day Patient Tobacco Use Status: Never used Tobacco Smoked in Last 30 Days: Yes Use of substances other than those prescribed or required for medical reasons: Yes Substance Use Type: Hallucinogens and Marijuana Advance Directives: No Advance Directives Information Provided: No Nutrition Risks: No Nutritional Risk Current occupational status: employed 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 Dextrose/Sodium Chloride (D51/2ns) 1,000 mls @ 100 mls/hr IVCONT .Q10H [facility]PE Last Admin: 02/24/23 02:53 Dose: 100 mls/hr Ketorolac Tromethamine (Ketorolac Tromethamine 30 Mg/Ml Vial) 30 mg IVPUSH Q6H PRN PRN Reason: Pain, Mild (Pain Scale 1-3) Stop: 03/01/23 01:33 Last Admin: 02/24/23 05:05 Dose: 30 mg Ondansetron HCl (Ondansetron Hcl 4 Mg/2 Ml Vial) 4 mg IVPUSH Q8H PRN PRN Reason: Nausea and Vomiting Sodium Chloride (0.9 % Sodium Chloride Flush 3 Ml Syringe) 3 ml IVFLUSH QSHIFT [facility]PE Physical Exam Vital Signs: Vital Signs: Last Vital Signs Temp 98.0 F 02/24/23 06:00 Pulse 70 02/24/23 06:00 Resp 16 02/24/23 06:00 BP 122/80 02/24/23 06:00 Pulse Ox 98 02/24/23 06:00 O2 Del Method Room Air 02/24/23 06:00 O2 Flow Rate 2 02/23/23 18:24 BMI result Body Mass Index 25.2 Chest: Other: chest breath sounds bilaterally HS 1 in 2 GI: Other: thin scaphoid abdomen. Marked right lower quadrant localized rebound tenderness. Results Results Labs: Short CBC 02/23/23 02/24/23 Range/Units 17:26 01:00 WBC 21.3 H 19.9 H (4.8-10.8) X10*3/uL Hgb 16.6 14.5 (14.0-18.0) g/dl Hct 47.0 42.5 (42.0-52.0) % Plt Count 393 291 D (160-400) X10*3/uL BMP 02/23/23 17:26 Sodium 143 Potassium 3.4 Chloride 101 Carbon Dioxide 23 BUN 7 L Creatinine 0.84 Calcium 9.7 Liver Function 02/23/23 Range/Units 17:26 Total Bilirubin 1.1 H (0.0-1.0) mg/dL AST 25 (5-37) U/L ALT 17 (0-40) U/L Alkaline Phosphatase 81 (39-117) U/L Albumin 4.4 (3.5-5.0) g/dL Urine 02/23/23 Range/Units 18:59 Urine Color Yellow Urine Appearance Clear Urine pH >= 9.0 (5.0-9.0) Ur Specific [place] >= 1.030 H (1.005-1.025) Urine Protein Negative (Neg-Trace) mg/dL Urine Glucose (UA) Negative (Negative) mg/dL Assessment and Plan (1) Appendicitis: Status: Acute Plan Combination of history, right lower quadrant rebound tenderness, leukocytosis, and CT findings strongly suggest acute appendicitis. Risks, benefits, alternatives of laparoscopic possible open c appendectomy were reviewed with the patient and included but not limited to bleeding, infection, numbness, pain, scarring, bowel injury and the patient wishes to proceed. All questions were answered. Arrangements will be made for the surgery this morning. Time Spent With Patient Time: Total time managing care of this patient today ____ minutes. Quality Stroke Does the patient have a stroke diagnosis?: No VTE Prior VTE?: No VTE Risk Level:: Surgical - low VTE Device Contraindication: Treatment Not Indicated VTE Drug Contraindication: Treatment Not Indicated Procedures Date of Service Date of Service: 02/24/23
--- NOTE | 2023-02-24 07:34 | PC.NURSE ---
obtained report from joy at 7am, per report- pt has high level of anxiety about surgery and per request of patient to allow him to sleep until surgery time, per report patient is a&ox3, IVF running per order, call kim within reach, will continue to monitor.
--- NOTE | 2023-02-24 07:56 | P.CONAN_ITS ---
HPI - Anesthesia Eval Consult details Narrative: Acute appendicitis PMFSH Active Problems Active Problems: All Active Problems (Updated 02/24/23 @ 01:35 by Natalie Burnett MD) Appendicitis (Acute) Injury of meniscus of right knee (Acute) Past Medical History Medical History (Updated 02/24/23 @ 01:35 by Natalie Burnett MD) Substance abuse Family History Family history of problems with anesthesia: No Surgical History History of Problems with Anesthesia: No Social History Social History (Updated 02/15/23 @ 10:40 by Ivon Pearl) Alcohol intake: current Alcohol intake frequency: 0-2 drinks per day Patient Tobacco Use Status: Never used Tobacco Smoked in Last 30 Days: Yes Use of substances other than those prescribed or required for medical reasons: Yes Substance Use Type: Hallucinogens and Marijuana Advance Directives: No Advance Directives Information Provided: No Nutrition Risks: No Nutritional Risk Current occupational status: employed 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 Dextrose/Sodium Chloride (D51/2ns) 1,000 mls @ 100 mls/hr IVCONT .Q10H [facility] Last Admin: 02/24/23 02:53 Dose: 100 mls/hr Ketorolac Tromethamine (Ketorolac Tromethamine 30 Mg/Ml Vial) 30 mg IVPUSH Q6H PRN PRN Reason: Pain, Mild (Pain Scale 1-3) Stop: 03/01/23 01:33 Last Admin: 02/24/23 05:05 Dose: 30 mg Ondansetron HCl (Ondansetron Hcl 4 Mg/2 Ml Vial) 4 mg IVPUSH Q8H PRN PRN Reason: Nausea and Vomiting Sodium Chloride (0.9 % Sodium Chloride Flush 3 Ml Syringe) 3 ml IVFLUSH QSHIFT [facility] Exam Exam Date and Time: February 24, 2023 0756 Height,Weight and Vital Signs: Height 5 ft 7 in Weight 73.3 kg Last Vital Signs Temp 98.0 F 02/24/23 06:00 Pulse 70 02/24/23 06:00 Resp 16 02/24/23 06:00 BP 122/80 02/24/23 06:00 Pulse Ox 98 02/24/23 06:00 O2 Del Method Room Air 02/24/23 06:00 O2 Flow Rate 2 02/23/23 18:24 Pertinent Lab Results Pertinent Lab Results: Laboratory Tests 02/23/23 02/23/23 02/23/23 17:26 17:26 17:29 WBC 21.3 H RBC 5.55 Hgb 16.6 Hct 47.0 MCV 84.7 MCH 29.9 MCHC 35.3 RDW 11.2 Plt Count 393 MPV 8.9 L Immature Gran % (Auto) 0.7 H Neut % (Auto) 82.7 H Lymph % (Auto) 8.0 L [place] % (Auto) 8.2 Eos % (Auto) 0.0 Baso % (Auto) 0.4 Lymph # (Auto) 1.7 [place] # (Auto) 1.8 H Eos # (Auto) 0.0 Baso # (Auto) 0.1 Abs Immat Gran (auto) 0.14 H Absolute Neuts (auto) 17.6 H Absolute Nucleated RBC 0.000 Nucleated RBC % (auto) 0.0 Smear Tech's Comments VERIFIED Sodium 143 Potassium 3.4 Chloride 101 Carbon Dioxide 23 Anion Gap 22 H BUN 7 L Creatinine 0.84 Estim Creat Clear Calc 108.1 Estimated GFR > 60 POC Glucose Random Glucose 142 H Lactic Acid Lactic Acid F/U @ 2Hr Calcium 9.7 Magnesium 1.2 L* Total Bilirubin 1.1 H AST 25 ALT 17 Alkaline Phosphatase 81 Total Protein 7.4 Albumin 4.4 Lipase 65 Urine Color Urine Appearance Urine pH Ur Specific [place] Urine Protein Urine Glucose (UA) Urine Ketones Urine Blood Urine Nitrite Ur Leukocyte Esterase Urine Opiates Screen Urine Fentanyl Screen Ur Barbiturates Screen Ur Phencyclidine Scrn Ur Amphetamines Screen U Benzodiazepines Scrn Urine Cocaine Screen U Marijuana (THC) Screen COVID-19 (GUNNAR) Negative COVID-19 Clin Com See Note 02/23/23 02/23/23 02/23/23 18:09 18:37 18:59 WBC RBC Hgb Hct MCV MCH MCHC RDW Plt Count MPV Immature Gran % (Auto) Neut % (Auto) Lymph % (Auto) [place] % (Auto) Eos % (Auto) Baso % (Auto) Lymph # (Auto) [place] # (Auto) Eos # (Auto) Baso # (Auto) Abs Immat Gran (auto) Absolute Neuts (auto) Absolute Nucleated RBC Nucleated RBC % (auto) Smear Tech's Comments Sodium Potassium Chloride Carbon Dioxide Anion Gap BUN Creatinine Estim Creat Clear Calc Estimated GFR POC Glucose 100 Random Glucose Lactic Acid 3.4 H* Lactic Acid F/U @ 2Hr Calcium Magnesium Total Bilirubin AST ALT Alkaline Phosphatase Total Protein Albumin Lipase Urine Color Yellow Urine Appearance Clear Urine pH >= 9.0 Ur Specific [place] >= 1.030 H Urine Protein Negative Urine Glucose (UA) Negative Urine Ketones Negative Urine Blood Negative Urine Nitrite Negative Ur Leukocyte Esterase Negative Urine Opiates Screen Urine Fentanyl Screen Ur Barbiturates Screen Ur Phencyclidine Scrn Ur Amphetamines Screen U Benzodiazepines Scrn Urine Cocaine Screen U Marijuana (THC) Screen COVID-19 (GUNNAR) COVIDNextPage 02/23/23 02/23/23 02/23/23 18:59 19:02 20:28 WBC RBC Hgb Hct MCV MCH MCHC RDW Plt Count MPV Immature Gran % (Auto) Neut % (Auto) Lymph % (Auto) [place] % (Auto) Eos % (Auto) Baso % (Auto) Lymph # (Auto) [place] # (Auto) Eos # (Auto) Baso # (Auto) Abs Immat Gran (auto) Absolute Neuts (auto) Absolute Nucleated RBC Nucleated RBC % (auto) Smear Tech's Comments Sodium Potassium Chloride Carbon Dioxide Anion Gap BUN Creatinine Estim Creat Clear Calc Estimated GFR POC Glucose 101 Random Glucose Lactic Acid Lactic Acid F/U @ 2Hr 1.8 Calcium Magnesium Total Bilirubin AST ALT Alkaline Phosphatase Total Protein Albumin Lipase Urine Color Urine Appearance Urine pH Ur Specific [place] Urine Protein Urine Glucose (UA) Urine Ketones Urine Blood Urine Nitrite Ur Leukocyte Esterase Urine Opiates Screen POSITIVE H Urine Fentanyl Screen Not Detected Ur Barbiturates Screen Not Detected Ur Phencyclidine Scrn Not Detected Ur Amphetamines Screen POSITIVE H U Benzodiazepines Scrn Not Detected Urine Cocaine Screen Not Detected U Marijuana (THC) Screen POSITIVE H COVID-19 (GUNNAR) COVIDNextPage 02/23/23 02/24/23 21:17 01:00 WBC 19.9 H RBC 4.87 Hgb 14.5 Hct 42.5 MCV 87.3 MCH 29.8 MCHC 34.1 RDW 11.4 Plt Count 291 D MPV 8.6 L Immature Gran % (Auto) 0.5 H Neut % (Auto) 81.4 H Lymph % (Auto) 8.6 L [place] % (Auto) 9.1 Eos % (Auto) 0.1 Baso % (Auto) 0.3 Lymph # (Auto) 1.7 [place] # (Auto) 1.8 H Eos # (Auto) 0.0 Baso # (Auto) 0.1 Abs Immat Gran (auto) 0.09 H Absolute Neuts (auto) 16.2 H Absolute Nucleated RBC 0.000 Nucleated RBC % (auto) 0.0 Smear Tech's Comments Sodium Potassium Chloride Carbon Dioxide Anion Gap BUN Creatinine Estim Creat Clear Calc Estimated GFR POC Glucose Random Glucose Lactic Acid Lactic Acid F/U @ 2Hr Calcium Magnesium 1.9 Total Bilirubin AST ALT Alkaline Phosphatase Total Protein Albumin Lipase Urine Color Urine Appearance Urine pH Ur Specific [place] Urine Protein Urine Glucose (UA) Urine Ketones Urine Blood Urine Nitrite Ur Leukocyte Esterase Urine Opiates Screen Urine Fentanyl Screen Ur Barbiturates Screen Ur Phencyclidine Scrn Ur Amphetamines Screen U Benzodiazepines Scrn Urine Cocaine Screen U Marijuana (THC) Screen COVID-19 (GUNNAR) COVID-19 Clin Com Airway Mallampati Class: II TM Dist: >3cm Neck ROM: Full Loose/Missing/Broken Teeth: No Heart: RRR Lungs: CTA Assessment and Plan Assessment Anesthesia Assessment: Anesthesia Plan Discussed and Chart Reviewed Final Anesthetic Review Family History of Problems with Anesthesia: No History of Problems with Anesthesia: No NPO: Yes ASA Class: I Final Preanesthetic Review: No Changes in Pt Med Stat, Meds/Allgs Chart Reviewed, Consent Obtained/Reviewed and Anes Risks/Benef Reviewed Patient Risk: Low Procedure Risk: Intermediate Anesthetic Plan Anesthetic Plan: GA Disposition: Standard PACU
--- NOTE | 2023-02-24 10:01 | W.PM.OPN ---
Operative Note Operative Note Date of Service: 02/24/23 Narrative: Preoperative diagnosis: [] acute appendicitis Postop diagnosis: [] acute gangrenous appendicitis, incarcerated umbilical hernia Procedure [] laparoscopic appendectomy, primary repair of incarcerated umbilical hernia Surgeon Primitivo Drying Room Supervisor: [] Type of Anesthesia: [] general Indication for surgery: [] acute appendicitis Findings: [] acute gangrenous appendicitis with no gross evidence of perforation. Incidental finding of an incarcerated umbilical hernia which was used as the umbilical port site and repaired primarily. This contained incarcerated omental contents. Patient is brought to the operating room, placed on the operating table in a supine position, and after an adequate level of general anesthesia was does, the patient underwent Gomez catheter placement her sterile technique, and the abdomen was prepped and draped in usual sterile fashion. Using a supraumbilical curvilinear incision, Petty technique was used to insufflate the abdominal cavity to 15 mm of CO2. This was accomplished through the opened incarcerated small umbilical hernia with omental contents, the latter of which was amputated using Bovie. Fascia margin were cleared and port entered without incident and secured. Lower midline and suprapubic ports were placed under direct laparoscopic view, and the patient was placed in reverse Trendelenburg position, tilted to the left. Findings were as noted above. The phlegmonous appendix was grasped using laparoscopic graspers and its mesentery sequentially taken down using double firing of ligature device. Appendix Was not transected at the cecal base using endoscopic NOE stapler. Specimen was placed in an Endo-Catch bag, a retrieved through the umbilical port. Abdominal cavity was copiously irrigated, and secured hemostasis. All ports were removed under direct laparoscopic view. Wounds were closed in the following manner; umbilical wound which is also site of the hernia was primarily closed using interrupted 0 Vicryl sutures. Skin wounds were closed using subcuticular 4-0 Monocryl suture followed by Steri-Strips and sterile dressings. Wounds were infiltrated with 0.5% Marcaine with epinephrine a completion. Sponge, needle, and instrument counts were reported to be correct. Patient tolerated the procedure well and emerged anesthesia stable condition. EBL minimal
[2023-02-24] MEDS: HYDROmorphone HCl 0.5 MG/0.5 ML SYRINGE IVPUSH (16:42)
[2023-02-24] MEDS: ondansetron HCL 4 MG/2 ML VIAL IVPUSH (17:24)
--- NOTE | 2023-02-25 09:17 | PM.DS ---
DS: Providers Provider Date of Service: 02/24/23 Date of admission: 02/24/23 01:35 Primary care physician: None Physician DS: Diagnosis Discharge Diagnosis (1) Appendicitis: Start date: 02/23/23 Status: Acute DS: Summary Hospital Course Hospital Course: Patient is a 42-year-old male presents here with nonspecific upper abdominal pain. He was evaluated for emergency department underwent CT scan which demonstrated nonspecific right lower quadrant findings. Patient was initially observed and admitted because of persistent symptoms and leukocytosis. Exam was most noteworthy for marked right lower quadrant rebound tenderness. Patient underwent uneventful laparoscopic appy on 02/24/23 patient postoperative course unremarkable aside from incision discomfort, patient has done well. Was advanced diet as tolerated, examining minimal assistance. He had incisional pain which was well controlled. He wished to be discharged home. Status at Discharge Functional status at discharge: independent ambulation Overall status at discharge: patient is back to baseline Time Spent with Patient Time attestation: Total time managing care of this patient today ____ minutes. Discharge coordination time: Less than 30 minutes Quality: Safe Use of Opioids Does Pt have an Active Cancer Diagnosis on the Problem List?: No Quality: Stroke Does the patient have a stroke diagnosis?: No Physical Exam Vital Signs: Vital Signs: Last Vital Signs Temp 99.2 F 02/24/23 19:38 Pulse 68 02/24/23 19:38 Resp 20 02/24/23 19:38 BP 139/69 02/24/23 19:38 Pulse Ox 100 02/24/23 19:38 O2 Del Method Room Air 02/24/23 19:38 O2 Flow Rate 2 02/23/23 18:24 BMI result Body Mass Index 25.2 GI: Other: Abdomen soft, wounds clean dry and intact. DS: Data Data Completed and Pending Completed studies during hospitalization [Text1]: Procedures Repair Abdominal Wall, Percutaneous Endoscopic Approach (02/24/23) Resection of Appendix, Percutaneous Endoscopic Approach (02/24/23) Labs on day of discharge: Preliminary micro results at discharge 02/23/23 18:08 Blood Culture - Preliminary Blood - Venous No growth after 24 hours. 02/23/23 18:09 Blood Culture - Preliminary Blood - Venous No growth after 24 hours. Discharge Plan Discharge Anticipated Discharge Date/Time: 02/24/23 20:27 Patient Disposition: Home, Self-Care Discharge Diagnosis: acute appendicitis Referrals: Physician,None [Primary Care Provider] - 1 Week Discharge Medications: New oxycodone-acetaminophen 5-325 mg tablet 1 tab PO Q8H PRN (Reason: pain) Qty: 20 0RF Rx Instructions: Partial Fill upon patient request. Held ibuprofen 600 mg tablet 600 mg PO Q8H PRN (Reason: pain) Qty: 20 0RF Hold Instructions: Resume on 03/01/23. Discharge Orders: Discharge Order (Routine); Ordered 02/24/23 Ordered By: Adilson Langford Diet: Advance to usual diet Activity on Discharge: No heavy lifting Stand Alone Forms: Patient Portal Discharge page Activity Restrictions/Additional Instructions: avoid strenuous activities, ice pack to wound 20 minutes on and off p.r.n., may shower in 2 days and only remove outside dressings and the Leave Steri-Strips intact. Care Plan Goals: as above Health Concerns: as above Plan of Treatment: as above Assessment: as above Discharge Date/Time: 02/24/23 21:03
== END 2023-02-24 21:03 | disposition home or self-care (01) | DRG 227 ==
LOC: HO.ED 02-24 01:35 → HO.EDOVER 02-24 01:41 → HO.S3 02-24 10:02
PROVIDERS: Physician Assistant Medical; Admitting Provider Surgery; Emergency Provider Emergency Medicine; Visit Provider Surgery
DX: K35.891 Other acute appendicitis without perforation, with gangrene (principal); K42.0 Umbilical hernia with obstruction, without gangrene; Z20.822 Contact with and (suspected) exposure to COVID-19; Z23 Encounter for immunization
CPT/HCPCS: 44970; 49592; 36415; 71275; 74174; 80053; 80307; 81003; 82947; 83605; 83690; 83735; 85025; 87040; 87635; 88302; 88304; 90686; 93005; 99285; J0690; J1100; J1170; J1885; J2060; J2250; J2270; J2405; J2543; J3010; J3475; Q9967

== ENCOUNTER 2023-03-04 15:05 | Outpatient (REF) | payer OTHER, MEDICAID, SELFPAY ==
[2023-02-24 09:47] VITALS: BP 108/79; PULSE 93; RESP 17; TEMP 36.9; O2SAT 99
[2023-02-24 09:52] VITALS: BP 134/79; PULSE 72; RESP 16; O2SAT 95
[2023-02-24 09:57] VITALS: BP 127/76; PULSE 78; RESP 16; O2SAT 94
[2023-02-24 10:02] VITALS: BP 122/78; PULSE 63; RESP 18; O2SAT 98
[2023-02-24 10:17] VITALS: BP 119/74; PULSE 90; RESP 18; TEMP 37.3; O2SAT 98
--- NOTE | 2023-02-25 09:54 | HO.POSTANES ---
Post Anesthesia Evaluation Post Anesthesia Evaluation Anesthesia: General Endotracheal-GETA Mental Status: Awake Pain Control: Satisfactory Nausea/Vomiting: None Hydration: Adequate Anesthesia-Related Issues: No Anes. Related Issues
--- NOTE | ~2023-03-04 | MR_ITS ---
EXAMINATION: MR KNEE WITHOUT CONTRAST, RIGHT CLINICAL INFORMATION: Sprain right knee. Patient reports pain and swelling. Patient reports prior surgery for ACL, MCL and meniscus. COMPARISON: None available. TECHNIQUE: MRI of the knee without contrast was performed using routine sequences on a high-field scanner. FINDINGS: MENISCI: Medial Meniscus: There is attenuation of the posterior horn and body of the meniscus, most likely reflecting postsurgical result. Mild heterogeneity of the meniscal root. Given the history, this most likely reflects postsurgical result but cannot exclude recurrent degenerative tear. Lateral Meniscus: There is a focal area of vertical increased signal along the periphery of the medial aspect of the posterior horn which could reflect volume average artifact or subtle tear. See sagittal image 18, series 4. Remaining portions of the meniscus unremarkable. LIGAMENTS: Cruciate: ACL: Postoperative changes related to anterior cruciate ligament reconstruction which appears intact. There is a small rounded ossific fragment at the insertion of the anterior cruciate ligament compatible with a loose body or perhaps ununited fracture fragment arising from the tibial spine. No marrow edema to suggest an acute process. PCL: Intact. Collateral: Intact. EXTENSOR MECHANISM: Intact. ARTICULAR CARTILAGE/BONE: Patellofemoral Compartment: Normal. Medial Compartment: There is a focal area of cartilage heterogeneity and subchondral edema and/or cystic change in the posterior weightbearing femoral articular surface. The tibial articular cartilage appears normal. Findings indicative of mild/focal arthrosis. Lateral Compartment: At the junction of the posterior weightbearing and nonweightbearing portion of the lateral femoral condyle there is irregular up to full-thickness cartilage loss and/or heterogeneity with subchondral edema and cystic change extending over 2 cm AP and approximately 13 mm transverse. There is some additional cartilage heterogeneity along the posterior medial aspect of the tibial articular surface with subchondral edema likely reactive. Findings indicative of rvoh-vx-ijrdqvdw arthrosis. JOINT FLUID AND BURSAE: There is a mild joint effusion, small Avina's cyst and mild synovitis. MISCELLANEOUS: There is an oval lobulated intramedullary lesion within the distal femur metaphysis. This measures 10 x 7 x 5 mm. This has lobulated borders. The lesion is dark on T1 and bright on T2 with punctate areas of low signal on both sequences. Findings characteristic for small cartilage lesion likely reflecting an enchondroma. MR/MR knee RT wo con IMPRESSION: 1. Postoperative changes related to anterior cruciate ligament reconstruction which appears intact. Small loose body versus ununited fracture fragment at the insertion of the anterior cruciate ligament. 2. Abnormality of the medial meniscus most likely reflects postsurgical result but cannot exclude recurrent degenerative tear. 3. Possible subtle tear along the periphery of the posterior horn of the lateral meniscus. 4. Jtwy-hn-qnwltolj arthrosis of the lateral compartment. Mild arthrosis of the medial compartment. 5. Small intramedullary lesion in the distal femur likely reflecting a cartilage lesion /enchondroma.
== END 2023-03-04 15:06 | disposition home or self-care (01) ==
LOC: HO.MRI 15:05
PROVIDERS: Surgery; Visit Provider Physician Assistant
PROC: 0DTJ4ZZ Resection of Appendix, Percutaneous Endoscopic Approach (ICD-10-PCS; CPT 44970; principal; 2023-02-24 08:00)
DX: S83.8X1A Sprain of other specified parts of right knee, initial encounter (principal)
CPT/HCPCS: 73721; 88302; 88304

== ENCOUNTER → 2023-03-07 11:00 | Outpatient (BNVA) | payer OTHER, SELFPAY | PROVIDERS: Visit Provider Surgery | DX: Z13.89 Encounter for screening for other disorder (principal) ==

== ENCOUNTER → 2023-03-21 09:56 | Outpatient (BNVA) | payer OTHER, SELFPAY | PROVIDERS: Visit Provider Physician Assistant | DX: S83.8X1A Sprain of other specified parts of right knee, initial encounter (principal); M25.561 Pain in right knee | CPT/HCPCS: 20610; J1040 ==

== ENCOUNTER 2023-04-11 12:00 | Outpatient (RCR) | payer OTHER, MEDICAID, SELFPAY ==
--- NOTE | 2023-04-09 15:29 | MHC.PT.EP ---
[facility] [place] Office [place] Office [place] Office [address] Lotus Pearce [address] [phone] F: [phone] F: [phone] F: [phone] F: [phone] Physical Therapy Plan of Care Date of Evaluation: Date of Surgery: Diagnosis: RIGHT knee meniscus injury (Seen on MRI: ?loose body near ACL, ?medial and ?lateral meniscus tears, intramedullary lesion in the distal femur) Assessment: Patient is a 42 y.o. male who is referred to PT by Marcelle Fernandez PA-C, with Dx of RIGHT knee meniscus tear. His MRI impression reveals: 1. Postoperative changes related to anterior cruciate ligament reconstruction which appears intact. Small loose body versus ununited fracture fragment at the insertion of the anterior cruciate ligament. 2. Abnormality of the medial meniscus most likely reflects postsurgical result but cannot exclude recurrent degenerative tear. 3. Possible subtle tear along the periphery of the posterior horn of the lateral meniscus. 4. Opgs-ki-mzevaddy arthrosis of the lateral compartment. Mild arthrosis of the medial compartment. 5. Small intramedullary lesion in the distal femur likely reflecting a cartilage lesion /enchondroma. Patient impairments include pain, swelling, limited ROM, weakness, antalgic gait. Patient current functional limitations are difficulty with ambulation without AD, difficulty with bending/squatting, unable to complete work tasks, difficulty with sit to stand and prolonged standing as well as stair use. Patient will benefit from skilled PT to address aforementioned impairments and functional limitations and gain as much ROM and strength as possible prior to potential knee surgery which will be discuss at his next orthopedic FUP appointment. Frequency and Duration: The patient will be seen 2x/week for 4 weeks Short Term Goals: 2 weeks With ambulation, patient presents with consistent step through gait pattern with cane use in L hand 100 ft. Patient demonstrates consistency and independence with HEP to self manage symptoms. 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 Patient presents with increased R knee quad strength 4+/5 to be able to perform reciprocal stairs with railing. Treatment Plan: Modalities to reduce pain, spasms and effusion. Manual therapy to restore motion and function. Therapeutic exercise to improve strength and flexibility. Neuromuscular re-education for posture and balance. Therapeutic activities to return to functional activities of daily living. Electronically signed by: Radha Chicas PT, DPT Please sign and return to therapist. Thank you for your referral.
--- NOTE | 2023-05-09 18:21 | MHC.PT.DC ---
[facility] [place] Office [place] Office [place] Office [address] Lotus Pearce 140 [facility] [phone] F: [phone] F: [phone] F: [phone] F: [phone] Physical Therapy Discharge Report Diagnosis: RIGHT knee meniscus injury (Seen on MRI: ?loose body near ACL, ?medial and ?lateral meniscus tears, intramedullary lesion in the distal femur) Date of Surgery: Date of Evaluation: 04/09/23 Date of Discharge: 05/09/23 Treatments to Date: 3 Cancellations to Date: No Shows to Date: Discharge Status: Patient Elected to Stop Recommend MD Follow-up Discharge Summary: Per his most recent PT note: Upon arrival pt reported a lot of px and felt he needed to be opened up to see what's going on in his knee.He feels he cannot go on with therapy due to his Recommended he follow up with MD at this if he feels he can not continue with ex's. No increased edema noted since previous visit. He is discharged from PT at this time. Electronically signed by: Radha Chicas, PT, DPT Please sign and return to therapist. Thank you for your referral.
== END 2023-05-09 18:21 | disposition home or self-care (01) ==
LOC: HO.PT 12:00
PROVIDERS: Visit Provider Physician Assistant
DX: S83.8X1D Sprain of other specified parts of right knee, subsequent encounter (principal)
CPT/HCPCS: 97110; 97116; 97161

== ENCOUNTER → 2023-05-02 09:15 | Outpatient (BNVA) | payer OTHER, SELFPAY | PROVIDERS: Visit Provider Orthopaedic Surgery ==

== ENCOUNTER 2023-05-15 09:16 | Day surgery (SDC) | payer OTHER, MEDICAID, SELFPAY ==
--- NOTE | 2023-05-14 11:41 | HO.ANESPROP2 ---
Documented by User: Dian Spivey NP 05/14/23 11:42 HPI - Anesthesia Eval Consult details Narrative: 43yo M for Knee Arthroscopy s/p lap appy 02/2023 with GA-ETT 7.5 Substance abuse PMFSH Active Problems Active Problems: All Active Problems (Updated 05/02/23 @ 09:32 by Miah Curtis) Loose body of right knee (Acute) History of repair of anterior cruciate ligament of right knee (Acute) Appendicitis (Acute) Injury of meniscus of right knee (Acute) Past Medical History Medical History Substance abuse Family History Family history of problems with anesthesia: No Surgical History Surgical History History of laparoscopic appendectomy History of Problems with Anesthesia: No Social History Social History Household Members: Family Housing: Apartment Do you presently have visiting nurse or other home services: No Alcohol intake: current Alcohol intake frequency: holidays/special occasions only Patient Tobacco Use Status: Former Tobacco user Substance Use Type: Marijuana Are you DNR?: No Advance Directives: No Advance Directives Information Provided: Yes Current occupational status: employed 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 Rate : 041 BPM ? ? Atrial Rate : 041 BPM ?? P-R Int : 128 ms? QRS Dur : 110 ms ? ? QT Int : 532 ms ? ? ? P-R-T Axes : 052 020 051 degrees ?? QTc Int : 438 ms ? Marked sinus bradycardia Minimal voltage criteria for LVH, may be normal variant ( Sokolow-Cruz ) Abnormal ECG No previous ECGs available Assessment and Plan Assessment Anesthesia Assessment: Chart Reviewed Final Anesthetic Review Family History of Problems with Anesthesia: No History of Problems with Anesthesia: No Documented by User: Dimas Wise MD 05/15/23 12:42 PMFSH Past Medical History Medical History Substance abuse Surgical History Surgical History History of laparoscopic appendectomy Social History Social History Household Members: Family Housing: Apartment Do you presently have visiting nurse or other home services: No Alcohol intake: current Alcohol intake frequency: holidays/special occasions only Patient Tobacco Use Status: Former Tobacco user Substance Use Type: Marijuana Are you DNR?: No Advance Directives: No Advance Directives Information Provided: Yes Current occupational status: employed 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 Pt claims had used Adaral recreationally few days ago. Assessment and Plan Final Anesthetic Review NPO: Yes ASA Class: III Final Preanesthetic Review: No Changes in Pt Med Stat, Meds/Allgs Chart Reviewed, Consent Obtained/Reviewed and Anes Risks/Benef Reviewed Patient Risk: Intermediate Procedure Risk: Intermediate Anesthetic Plan Anesthetic Plan: GA and Agree w/ Assess. and Plan Disposition: Standard PACU
[2023-05-15] VITALS (8 sets, daily range): BP systolic 120–144; BP diastolic 75–87; PULSE 47–84; RESP 16–20; TEMP 36.3–36.5; O2SAT 96–100; BMI 25.4
[2023-05-15] MEDS: Lactated Ringers 1,000 ML 100 ML IVCONT (09:49)
[2023-05-15 10:21] LABS: Amphetamine Screen Urine POSITIVE (Not Detect); Barbiturates, Urine Not Detected (Not Detect); Benzodiazepines Screen Urine POSITIVE (Not Detect); Cannabinoid Screen Urine POSITIVE (Not Detect); Cocaine Screen Urine Not Detected (Not Detect); Fentanyl, urine Not Detected (Not Detect); Opiate Screen Urine Not Detected (Not Detect); Phencyclidine Screen Urine Not Detected (Not Detect)
--- NOTE | 2023-05-15 11:50 | PC.NURSE ---
fa,i;y aware delay called sister per request from patient
--- NOTE | 2023-05-15 13:04 | MHC.SHP ---
Pre-Procedural Eval Section A Date of Service: 05/15/23 The patient is an INPATIENT: No Changes since office visit: No Cold of Flu in the past 2 weeks, No New Medical Problems, No Changes in Medication and No Patient answered all questions The History & Physical has been completed within 30 days and I have reviewed it.: Yes Section B Chief Complaint: Loose body in knee, right knee Allergies: Allergies Allergy/AdvReac Type Severity Reaction Status Date / Time No Known Allergies Allergy Verified 03/07/23 11:19 Plan I have reviewed the history and physical and performed a pertinent physical examination on my patient. No changes have occurred unless specified. Time Spent With Patient Time: Total time managing care of this patient today ____ minutes.
--- NOTE | 2023-05-15 13:55 | PM.OP ---
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
--- NOTE | 2023-05-16 19:39 | P.OP_ITS ---
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 A time-out was called to identify proper site proper procedure proper surgeon and IV antibiotics per weight were administered. He had a POSITIVE PIVOT SHIFT. I began by exsanguinating the limb and insufflating tourniquet to 300 mm Hg. Then made a standard anterolateral stab incision. The knee was insufflated with water and 30 degree arthroscope was placed. There was grade 1 fibrillations of the ponce la but overall suprapatellar pouch and the gutters were clean. I descended into the medial compartment where I made my medial portal under direct visualization. There was an old tear of the posterior horn of the medial meniscus that was scarred to the posterior capsule. The root was intact and there was grade 1 changes scattered in the medial compartment. I probed the meniscus. It was stable and there was nothing to debride. There was a G2.3 lesion of the lateral aspect of the MFC that was probed and was stable. The ACL was examined and was diminutive but femoral and tibial attachements intact. There were small loose bodies in the notch that were removed with a shaver. I examined the lateral meniscus which was intact and G1 changes of the LTP. I returned to the pouch and debrided loose tissue. I then removed all instrumentation and closed the portals with skin glue. 25 mL of 2% Marcaine with epinephrine was injected into the joint and the surrounding soft tissues. Patient was then placed in sterile dressing extubated brought recovery room stable condition. There were no known complications.
== END 2023-05-15 15:53 | disposition home or self-care (01) ==
LOC: HO.SSS 09:16
PROVIDERS: Nurse Practitioner; Visit Provider Orthopaedic Surgery
PROC: (CPT 29870; principal; 2023-05-15 10:50)
DX: M23.41 Loose body in knee, right knee (principal); M17.31 Unilateral post-traumatic osteoarthritis, right knee; M23.51 Chronic instability of knee, right knee; M25.861 Other specified joint disorders, right knee; S89.91XA Unspecified injury of right lower leg, initial encounter; X58.XXXA Exposure to other specified factors, initial encounter; Y93.9 Activity, unspecified; Y92.69 Other specified industrial and construction area as the place of occurrence of the external cause; Y99.0 Civilian activity done for income or pay; Z98.890 Other specified postprocedural states; F12.90 Cannabis use, unspecified, uncomplicated; F15.10 Other stimulant abuse, uncomplicated; Z79.899 Other long term (current) drug therapy; Z87.891 Personal history of nicotine dependence
CPT/HCPCS: 27331; 29877; 80307; J0171; J0690; J1100; J1170; J2405; J2795; J3010

== ENCOUNTER → 2023-05-20 15:15 | Outpatient (BNVA) | payer OTHER, SELFPAY | PROVIDERS: Visit Provider Physician Assistant ==

== ENCOUNTER 2023-06-24 13:23 | Outpatient (AMB) | payer OTHER, SELFPAY ==
--- NOTE | 2023-06-24 13:26 | MHC.OFFVIS ---
Intake Vital Signs 06/24/23 13:27 Height 5 ft 7 in Weight 160 lb BMI 25.1 Intake Visit Reasons: PO RT KNEE 05/15/23NE Intake Note: Allan is a 43 year old male who presents today for a postoperative appointment S/P right knee arthroscopy 05/15/23. Patient reports he is doing well, he hears a pop once in a while. He denies pain. He continues to work with PT. Allergies No Known Allergies Allergy (Verified 06/24/23 13:31) HPI PO RT KNEE 05/15/23NE HPI Details 43-year-old male who returns to the office today for post-op right knee , 05/15/[address] Forbes. He states he has no pain but he occasionally experiences a pop sensation in his knee. He continues to work with physical therapy. He is doing well otherwise and has no concerns today. 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 No erythema or joint effusion. ROM is 0-100. Calf supple, nontender. NVI. Assessment & Plan Assessment & Plan (1) S/P right knee arthroscopy: Code(s): Z98.890 - Other specified postprocedural states Plan He will increase activity as tolerated continuing with physical therapy. He will follow-up as needed. Patient Instructions: Scribed for Elana Camarillo PA-C, by carolann Green scribe, on 06/24/2023 at 1:30 PM EST. IElana PA-C, have personally reviewed and agree with the information entered by the scribe. Coding Level of Care Code Global (17137) Diagnoses S/P right knee arthroscopy Z98.890
[2023-06-24 13:27] VITALS: BMI 25.1
== END 2023-06-24 13:41 | disposition home or self-care (01) ==
PROVIDERS: Visit Provider Physician Assistant
DX: M23.41 Loose body in knee, right knee (principal)
CPT/HCPCS: 99024

== ENCOUNTER → 2023-06-24 13:23 | Outpatient (BNVA) | payer OTHER, SELFPAY | PROVIDERS: Visit Provider Physician Assistant ==

== ENCOUNTER 2023-07-05 14:00 | Outpatient (RCR) | payer OTHER, MEDICAID, SELFPAY ==
--- NOTE | 2023-06-07 11:52 | MHC.PT.EP ---
[facility] [place] Office [place] Office [place] Office [address] Lotus Pearce [address] [phone] F: [phone] F: [phone] F: [phone] F: [phone] Physical Therapy Plan of Care Date of Evaluation: Date of Surgery: 05/15/23 Diagnosis: loose body removal of right knee (RL) Assessment: pt is a 43 y/o male presenting to physical therapy w/ referring diagnosis of RT Knee . pt underwent arthroscopic procedure to R knee on 05/15/23 to remove loose bodies. Impairments include pain, decreased range of motion, decreased strength, impaired functional mobility, impaired postural awareness, and altered ambulation mechanics. pt is an excellent candidate for skilled PT due to age, potential remediation of impairments, typical disease/condition progression and prognosis, comorbidities, and motivation. pt would benefit from skilled PT intervention to provide a tailored strengthening and stretching exercise program, functional training, gait training, postural re-training, neuromuscular re-education, modalities as needed for pain, equipment safety demonstration. Frequency and Duration: The patient will be seen 2x/wk for 4 wks Short Term Goals: pt will be I w/ HEP to promote self-management of condition. pt will improve L knee flexion by 10 degrees to promote ease in stair navigation. Nursing Home Goals: pt will report a statistically significant improvement in self-reported outcome measure, LEFI, to promote return to PLOF. pt will report <2/10 knee pain w/ standing for >25 minutes to promote return to work-related tasks. Treatment Plan: Modalities to reduce pain, spasms and effusion. Manual therapy to restore motion and function. Therapeutic exercise to improve strength and flexibility. Neuromuscular re-education for posture and balance. Therapeutic activities to return to functional activities of daily living. Electronically signed by: Jennifer Booth PT, DPT Please sign and return to therapist. Thank you for your referral.
--- NOTE | 2023-07-25 08:21 | MHC.PT.DC ---
[facility] [place] Office [place] Office [place] Office [address] Lotus Pearce 140 [facility] [phone] F: [phone] F: [phone] F: [phone] F: [phone] Physical Therapy Discharge Report Diagnosis: loose body removal of right knee (RL) Date of Surgery: 05/15/23 Date of Evaluation: 06/07/23 Date of Discharge: 07/25/23 Treatments to Date: 4 Cancellations to Date: 3 No Shows to Date: 3 Discharge Status: Discharge Summary: Per last treatment note on 07/05/23: He presents with near full AROM in R knee compared to contralateral side. He is still having difficulty with isolated step ups. He reports havign some fear mentally as prior to surgery his knee would buckle or give out. With practice this exercise gets easier. Also continued with balance activities on unlevel surfaces as tolerated, no c/o pain. He has otherwise been non-compliant with his attendance and is being discharged. Electronically signed by: Jennifer Booth PT, DPT Please sign and return to therapist. Thank you for your referral.
== END 2023-07-25 08:21 | disposition home or self-care (01) ==
LOC: HO.PT 14:00
PROVIDERS: Visit Provider Physician Assistant
DX: M23.41 Loose body in knee, right knee (principal); S83.8X1A Sprain of other specified parts of right knee, initial encounter; Z98.890 Other specified postprocedural states
CPT/HCPCS: 97110; 97112; 97161; 97530